=== PATIENT | male | born 1955 | race Caucasian/White ===

== ENCOUNTER 2018-12-02 19:20 | Inpatient (IN) | payer MEDICARE ==
[~2018-12-02 19:20] MED LIST: ISOVUE-370 76%-LOCM 1 ML ONE
--- NOTE | 2018-12-02 20:09 | CT ---
CT Brain WO Con HISTORY: Seizure COMPARISON: None. FINDINGS: The ventricular and cisternal system is within normal limits. There are no signs of intrace rebral hemorrhage or extra-axial fluid collections. The mastoid air cells and visualized sinuses are clear. IMPRESSION: No acute intracranial abnormalities.
[2018-12-02 20:31] LABS: #Eosinphils 0.1 thou/uL (0.0-0.7); #Lymphocytes 1.5 thou/uL (1.20-3.40); #Neutrophils 14.3 thou/uL (1.40-6.50); %Basophils 0.2 % (0.0-1.0); %Eosinophils 0.7 % (0.0-10.0); %Monocytes 5.9 % (0.0-10.0); %Neutrophils 84.2 % (42.0-75.0); Hemoglobin 14.4 g/dL (14.0-18.0); Mean Corpuscular HGB CONC 34.3 g/dL (32.0-36.0); Mean Corpuscular Hemoglobin 33.8 pg (27.0-31.0); Mean Corpuscular Volume 98.4 fL (78.0-98.0); Mean Platelet Volume 8.7 fL (7.4-10.4); Platelet Count 249 thou/uL (130-400); RBC Distribution Width 12.1 % (11.5-14.5); Red Blood Cell (RBC) Count 4.26 mill/uL (4.70-6.10); White Blood Cell (WBC) Count 16.9 thou/uL (4.8-10.8)
[2018-12-02 20:53] LABS: ALT (SGPT) 18 U/L (8-55); AST (SGOT) 18 U/L (5-34); Albumin 4.3 g/dL (3.4-4.8); Alkaline Phosphatase 85 U/L (40-150); Anion Gap 15 mmol/L (10-20); BUN (Urea Nitrogen) 24 mg/dL (8.4-25.7); Bilirubin, Total 0.3 mg/dL (0.2-1.2); Calc. Creatinine Clearance 0 mL/min (70-130); Calcium 9.5 mg/dL (7.8-10.44); Carbon Dioxide 20 mmol/L (23-31); Chloride 104 mmol/L (98-107); Estimated GFR-MDRD 49; Glucose 156 mg/dL (80-115); Potassium 4.1 mmol/L (3.5-5.1); Protein, Total 7.3 g/dL (5.8-8.1); Sodium 135 mmol/L (136-145)
[2018-12-02 21:16] LABS: CKMB 3.6 ng/mL (0-6.6)
--- NOTE | 2018-12-02 21:53 | CT ---
CT angiography of head performed with intravenous contrast enhancement with 3-D reconstructions HISTORY: Seizure and left-sided weakness. History of headache for the past 3 weeks. COMPARISON: Noncontrast CT of brain done earlier today. FINDINGS: The vertebral arteries are codominant. They form a somewhat small basilar artery. There is origin of both posterior communicating arteries which give the major contribution to the posterior cerebral arteries. There is atherosclerotic change of the cavernous portions of both internal carotid arteries. There is absence of the A1 segment of the left anterior cerebral artery the A2 segment is fed from the right side via the 8 anterior communicating artery. The middle cerebral arteries are normal in appear ance. No aneurysm. No intraluminal thrombus. IMPRESSION: Developmental abnormalities of the [place] as described above. No acute findings.
[2018-12-02] MEDS ORDERED: Ketorolac Tromethamine 30 MG/ML VIAL ONE (22:46)
[2018-12-02] MEDS ORDERED: diphenhydrAMINE 50 MG/ML VIAL ONE (22:46)
[2018-12-02] MEDS ORDERED: Metoclopramide HCl 10 MG/2 ML VIAL ONE (22:46)
[2018-12-02 23:30] LABS: Magnesium 1.6 mg/dL (1.6-2.6); Phosphorus 3.2 mg/dL (2.3-4.7)
--- NOTE | 2018-12-02 23:43 | RAD ---
XR Chest 1 View Portable HISTORY: Seizure and left-sided weakness. COMPARISON: None. FINDINGS: Heart size appears slightly enlarged. There are postop sternotomy changes. The lungs are cl ear of infiltrates. There are no signs of failure. IMPRESSION: No active intrathoracic disease.
[2018-12-03] MEDS ORDERED: Aspirin 325 MG TAB ONE (00:14)
[2018-12-03 06:13] VITALS: BMI 35.3
[2018-12-03 06:13] LABS: Folate (Folic Acid) 15.8 ng/mL (7.0-31.4)
[2018-12-03] MEDS ORDERED: Dextrose 5% in Water 1,000 ML IV PRN (07:12)
[2018-12-03] MEDS ORDERED: Insulin Regular 300 UNITS/3 ML VIAL SC PRN ×2 (07:12)
[2018-12-03] MEDS ORDERED: Dextrose 50% Abboject 50 ML SYRINGE SLOW IVP PRN (07:12)
[2018-12-03] MEDS ORDERED: hydrALAZINE 20 MG/ML VIAL SLOW IVP PRN ×2 (07:13→07:15)
[2018-12-03] MEDS ORDERED: tiZANidine HCl 4 MG TAB PO PRN (07:14)
--- NOTE | 2018-12-03 07:59 | HP ---
PRIMARY CARE PHYSICIAN: Dr. Vero Prabhakar. PRIMARY SUPERVISOR [employer] PRODUCTION: Dr. Viveros. CHIEF COMPLAINT: Altered mentation. HISTORY OF PRESENT ILLNESS: The patient is a 63-year-old male with coronary artery disease, paroxysmal atrial fibrillation, diabetes mellitus type 2, hypertension, and hyperlipidemia, presented to the emergency room with above complaints. History obtained from the patient. No family at the bedside. The patient was brought in by an [facility] with altered mentation. The patient was at home at that time. His noticed seizure-like activity. Details unavailable. The patient was unresponsive when EMS arrived. He was then found to have left-sided weakness by EMS. The patient also reports chronic headaches over the last 2 to 3 weeks. His primary care physician recently started him on Fioricet. The patient gradually regained consciousness in the helicopter. He does not recall the above event. He remembers eating dinner at approximately 5:30 p.m. He denies any double vision or blurring of vision at this time. The patient is legally blind since 2012. He had some nausea and had one episode of vomiting in the helicopter. No chest pain or palpitations reported. PAST MEDICAL HISTORY: 1. Paroxysmal atrial fibrillation. The patient had an event monitor with Dr. Viveros in July of this year that was negative for arrhythmias. It showed multiple PVCs. 2. Hypertension. 3. Hyperlipidemia. 4. Anxiety. 5. Legal blindness. 6. History of chondrosarcoma. 7. CKD. 8. Status post coronary artery bypass grafting. 9. Depression. 10. Diabetes mellitus, type 2. 11. GERD. 12. Obesity with a BMI of 35.3. 13. Obstructive sleep apnea. PAST SURGICAL HISTORY: 1. Bony pelvis surgery for chondrosarcoma. 2. Coronary artery bypass grafting. 3. Cystoscopy with ureteral stent removal. 4. Nasal septoplasty with turbinoplasty. FAMILY HISTORY: Positive for heart disease in both the parents. One sister with malignancy. SOCIAL HISTORY: The patient currently lives at home with his family. He denies any tobacco abuse. He drinks alcohol socially. REVIEW OF SYSTEMS: As discussed above, all other review of systems were reviewed and were found negative. CURRENT HOME MEDICATIONS: 1. Levemir 30 units daily. 2. Aspirin 81 mg daily. 3. Lipitor 40 mg at bedtime. 4. Isosorbide mononitrate 30 mg daily. 5. Metformin 1000 mg b.i.d. 6. Reglan 10 mg at bedtime p.r.n. 7. Mirabegron 25 mg daily. 8. Olmesartan 20 mg daily. 9. Tizanidine 4 mg daily. PHYSICAL EXAMINATION: VITAL SIGNS: Showed temperature 98.3, respirations 14, pulse rate of 93, and blood pressure 166/93 with O2 saturation 93% on room air. GENERAL: A 63-year-old male, in no apparent distress. HEENT: Head, atraumatic and normocephalic. Sclerae are anicteric. Moist mucous membranes. No oral lesion. NECK: Supple. No JVD. No neck stiffness. LUNGS: Clear to auscultation bilaterally. No wheezing, rales, or rhonchi. HEART: S1 and S2 present. Regular rate and rhythm. Healed midline scar from previous CABG. No heaves or pulsation. ABDOMEN: Soft, nontender. Bowel sounds present. No rebound or guarding. EXTREMITIES: No edema or calf tenderness. NEUROLOGY: Cranial nerves II through XII are normal on examination. Power was 5/5 in all extremities. Sensation to touch was normal bilaterally. PSYCHIATRY: Alert, awake, and oriented x3. SKIN: Warm and dry. LYMPH NODES: No palpable lymph nodes in the neck. PERIPHERAL VASCULAR: Radial pulses palpable bilaterally. MUSCULOSKELETAL: No joint swelling or tenderness. LABORATORY FINDINGS: CBC showed WBC 16.9, hemoglobin 14.4, hematocrit 41.9, and platelet 249. Chemistries showed sodium 135, potassium 4.1, chloride 104, bicarb 20, BUN 24, and creatinine 1.45. Troponin of 0.048. Repeat troponin was 0.107. Magnesium was 1.6, phosphorus 3.2, vitamin B12 of 322. Folic acid and TSH was normal. IMAGING DATA: CT scan of the brain by my review was negative for acute findings. Chest x-ray by my review was negative for infiltrate. CT angiogram of the head without contrast was negative for acute findings. There is absence of the A1 segment of the left anterior cerebral artery. EKG by my review showed sinus rhythm without significant ST-T wave changes. IMPRESSION: 1. New-onset seizure with left-sided weakness. The left-sided weakness has resolved. 2. Encephalopathy secondary to new-onset seizure with left-sided weakness, resolved. 3. Coronary artery disease, status post coronary artery bypass grafting. 4. Hypertension. 5. Hyperlipidemia. 6. Diabetes mellitus, type 2. 7. Hypomagnesemia. 8. Vitamin B12 deficiency. 9. Obesity with a BMI of 35. 10. Obstructive sleep apnea, on CPAP. 11. The patient is legally blind. 12. Anxiety. PLAN: The patient will be monitored in the Stroke Unit. Neurology will be consulted. MRI was discussed, however, the patient states that he has extreme claustrophobia and can only do MRI under anesthesia. We will discuss with Neurology. We will continue telemetry monitoring. Continue aspirin 81 mg. We will add sliding scale. The left-sided weakness was probably secondary to seizure. Other possibilities include transient ischemic attack. Echocardiogram will be obtained. Plan of care was discussed with the patient in detail. He stated understanding. Job ID: [id number]
[2018-12-03 08:53] LABS: CKMB 9.3 ng/mL (0-6.6)
[2018-12-03] MEDS: Isosorbide Mononitrate (ER) 30 MG TAB PO SCH (09:40)
[2018-12-03] MEDS: Aspirin 325 mg Enteric Coated Tablet PO SCH (09:40)
[2018-12-03] MEDS: Cyanocobalamin (Vitamin B-12) 1,000 MCG TAB PO SCH (09:40)
[2018-12-03] MEDS: Acetaminophen 325 MG TAB PO PRN (09:48)
[2018-12-03] MEDS: Enoxaparin Sodium 40 MG/0.4 ML SYRINGE SC SCH (09:48)
[2018-12-03] MEDS: Sodium Chloride 0.9% 1,000 ML IV SCH (10:25)
[2018-12-03] MEDS: Magnesium 2 GM/50 ML 2 GM in Premix Bag 1 BAG IVPB SCH ×2 (11:03→11:41)
[2018-12-03] MEDS ORDERED: Magnesium 2 GM/50 ML 2 GM in Premix Bag 1 BAG IVPB SCH (11:45)
[2018-12-03] MEDS ORDERED: PROPOFOL 200 MG/20 ML VIAL ONE (13:32)
[2018-12-03] MEDS ORDERED: Lidocaine 1% PF 5 ML VIAL ONE (13:32)
[2018-12-03] MEDS ORDERED: Gadobenate Dimeglumine 529 MG/1 ML (20ML VIAL) ONE (15:54)
[2018-12-03] MEDS ORDERED: Midazolam HCl 5 mg/5 ml Vial ONE (17:01)
--- NOTE | 2018-12-03 18:04 | MRI ---
MRI Brain W WO Con HISTORY: Headaches and right temporal region x3 weeks. COMPARISON: CT angiography of head and noncontrast CT performed yesterday. FINDINGS: The ventricular and cisternal system shows fairly age-appropriate change. There is some min imal T2 and FLAIR signal change within the white matter which is compatible with some age related change. No signs of any infarct. No intra or extra-axial masses. No areas of abnormal contrast enhancement. The mastoid air cells are clear. Minimal mucosal changes seen within the ethmoid air cells. Pituitary region appears unremarkable. IMPRESSION: No acute intracranial abnormalities.
[2018-12-03] MEDS: Atorvastatin Calcium 40 MG TAB PO SCH (21:07)
[2018-12-04 04:51] LABS: #Basophils 0.1 thou/uL (0.0-0.2); #Eosinphils 0.5 thou/uL (0.0-0.7); #Lymphocytes 2.3 thou/uL (1.20-3.40); #Monocytes 0.7 thou/uL (0.11-0.59); #Neutrophils 5.7 thou/uL (1.40-6.50); %Basophils 0.6 % (0.0-1.0); %Monocytes 7.7 % (0.0-10.0); %Neutrophils 61.7 % (42.0-75.0); Hemoglobin 13.1 g/dL (14.0-18.0); Mean Corpuscular HGB CONC 33.7 g/dL (32.0-36.0); Mean Corpuscular Hemoglobin 32.9 pg (27.0-31.0); Mean Corpuscular Volume 97.6 fL (78.0-98.0); Mean Platelet Volume 8.7 fL (7.4-10.4); Platelet Count 225 thou/uL (130-400); Red Blood Cell (RBC) Count 3.98 mill/uL (4.70-6.10); White Blood Cell (WBC) Count 9.3 thou/uL (4.8-10.8)
[2018-12-04 05:14] LABS: Anion Gap 13 mmol/L (10-20); BUN (Urea Nitrogen) 16 mg/dL (8.4-25.7); Calc. Creatinine Clearance 102 mL/min (70-130); Calcium 9.4 mg/dL (7.8-10.44); Carbon Dioxide 23 mmol/L (23-31); Cardiac Risk 5.8 (Less than 4.5); Chloride 107 mmol/L (98-107); Cholesterol 163 mg/dl (< 200 Desired); Estimated GFR-MDRD 66; Glucose 112 mg/dL (80-115); HDL Cholesterol 28 mg/dL (>60 Neg Risk); LDL Cholesterol, Calculated 97 mg/dL; Magnesium 1.7 mg/dL (1.6-2.6); Potassium 3.8 mmol/L (3.5-5.1); Sodium 139 mmol/L (136-145); Triglycerides 190 mg/dL (Less than 150)
[2018-12-04] MEDS: Acetaminophen 325 MG TAB PO PRN ×3 (08:09→18:06)
[2018-12-04] MEDS: Sodium Chloride 0.9% 1,000 ML IV SCH ×2 (08:56→20:37)
[2018-12-04] MEDS: Enoxaparin Sodium 40 MG/0.4 ML SYRINGE SC SCH (09:11)
[2018-12-04] MEDS: Senokot S 8.6-50 MG TAB PO PRN (09:11)
[2018-12-04] MEDS: Aspirin 325 mg Enteric Coated Tablet PO SCH (09:11)
[2018-12-04] MEDS: Cyanocobalamin (Vitamin B-12) 1,000 MCG TAB PO SCH (09:11)
[2018-12-04] MEDS: Isosorbide Mononitrate (ER) 30 MG TAB PO SCH (09:11)
[2018-12-04 09:42] LABS: Cocaine Metabolite Screen Not Detected (NotDetected); Medtox Reader # READER 4; Methamphetamine Not Detected (NotDetected); Opiate Screen Not Detected (NotDetected); Phencyclidine (PCP) Not Detected (NotDetected); THC/Cannabinoid Screen Not Detected (NotDetected)
[2018-12-04 09:43] LABS: Amphetamine Not Detected (NotDetected); Barbiturates Screen Detected (NotDetected); Benzodiazepine Screen Not Detected (NotDetected); Medtox Control Line Valid? VALID (VALID); Methadone Not Detected (NotDetected); Oxycodone Screen Not Detected (NotDetected); Tricyclic Screen Not Detected (NotDetected)
--- NOTE | 2018-12-04 10:03 | RAD ---
LEFT HIP THREE VIEWS: History: Left hip pain. FINDINGS: Degenerative changes are present. No fracture, dislocation, or bony destruction is identified. IMPRESSION: As above. POS: TPC
--- NOTE | 2018-12-04 14:14 | PDOC.HOSPP ---
- Subjective Encounter Date: 12/04/18 Encounter Time: 09:20 Subjective: Pt seen for followup re: seizure. Feels better. - Objective Vital Signs & Weight: Vital Signs (12 hours) Temp Pulse Pulse Resp BP BP BP 12/04/18 11:13 98.1 F 70 18 147/92 H 12/04/18 09:01 71 164/98 H 161/97 H 12/04/18 08:01 12/04/18 07:51 97.9 F 67 18 172/90 H Pulse Ox 12/04/18 11:13 96 12/04/18 09:01 12/04/18 08:01 96 12/04/18 07:51 96 Weight Weight 239 lb 6 oz I&O: 12/03/18 12/04/18 12/05/18 06:59 06:59 06:59 Intake Total 765 600 Balance 765 600 Result Diagrams: 12/04/18 04:25 12/04/18 04:25 Additional Labs: Accuchecks 12/04/18 12/04/18 12/03/18 10:59 05:40 19:16 POC Glucose 135 H 118 H 144 H 12/02/18 19:43 POC Glucose 154 H Labs and MARs reviewed by me EKG Reviewed by me: Yes (Tele: NSR) ROS - Review of Systems Respiratory: denies: cough, dry, shortness of breath, hemoptysis, SOB with excertion, pleuritic pain, sputum, wheezing Cardiovascular: denies: chest pain, palpitations, orthopnea, paroxysmal noc. dyspnea, edema, light headedness - Medication Medications: Active Medications Generic Name Dose Route Start Last Admin Trade Name Freq PRN Reason Stop Dose Admin Acetaminophen 650 mg 12/03/18 07:16 12/04/18 13:45 Tylenol PO 650 mg Q4H PRN Administration Headache/Fever/Mild Pain (1-3) Aspirin 325 mg 12/03/18 09:00 12/04/18 09:11 Ecotrin PO 325 mg DAILY JOSUE Administration Atorvastatin Calcium 40 mg 12/03/18 21:00 12/03/18 21:07 Lipitor PO 40 mg HS JOSUE Administration Cyanocobalamin 1,000 mcg 12/03/18 09:00 12/04/18 09:11 Vitamin B-12 PO 1,000 mcg DAILY JOSUE Administration Enoxaparin Sodium 40 mg 12/03/18 09:00 12/04/18 09:11 Lovenox SC 40 mg 0900 JOSUE Administration Sodium Chloride 1,000 mls @ 75 mls/hr 12/03/18 07:45 12/04/18 08:56 Normal Saline 0.9% IV Not Given .[id number] JOSUE Isosorbide Mononitrate 30 mg 12/03/18 09:00 12/04/18 09:11 Imdur Er PO 30 mg DAILY JOSUE Administration Mirabegron 25 mg 12/03/18 09:00 12/04/18 09:11 Myrbetriq Er PO 25 mg DAILY JOSUE Administration Senna/Docusate Sodium 1 tab 12/03/18 07:16 12/04/18 09:11 Senokot S PO 1 tab BID PRN Administration Constipation - Exam General - other findings: Obese Eye: anicteric sclera ENT: moist mucosa ENT - other findings: tongue bruised on left Heart: RRR Respiratory: CTAB Gastrointestinal: soft, non-tender Neurological: CN's grossly intact Musculoskeletal: normal tone Psychiatric: normal affect, normal behavior Hosp A/P (1) Seizure Code(s): R56.9 - UNSPECIFIED CONVULSIONS Status: Acute (2) Elevated troponin Code(s): R74.8 - ABNORMAL LEVELS OF OTHER SERUM ENZYMES Status: Acute (3) Right hip pain Code(s): M25.551 - PAIN IN RIGHT HIP Status: Acute (4) JERICA (obstructive sleep apnea) Code(s): G47.33 - OBSTRUCTIVE SLEEP APNEA (ADULT) (PEDIATRIC) Status: Acute (5) HTN (hypertension) Code(s): I10 - ESSENTIAL (PRIMARY) HYPERTENSION Status: Chronic (6) Dyslipidemia Code(s): E78.5 - HYPERLIPIDEMIA, UNSPECIFIED Status: Chronic (7) DM2 (diabetes mellitus, type 2) Status: Chronic - Plan PT/OT, out of bed/ambulate Seizure precautions. MRI brain nil acute. Continue Cozaar and PRN IV hydralazine. Reasonable control of blood sugars. Await neurology and cardiology services input. Check R hip x-rays.
[2018-12-04] MEDS: Carvedilol 3.125 MG TAB PO SCH (18:06)
[2018-12-04] MEDS: Atorvastatin Calcium 40 MG TAB PO SCH (20:33)
--- NOTE | 2018-12-04 22:59 | CON ---
DATE OF CONSULTATION: 12/04/2018 INDICATION FOR CONSULTATION: A 63-year-old patient with a history of coronary artery disease with a new onset seizure disorder. HISTORY OF PRESENT ILLNESS: This 63-year-old gentleman has a history of coronary artery disease, has undergone bypass surgery approximately 6 years ago, who is normally followed at [facility] by Dr. Viveros. He has had some history in the past of paroxysmal atrial fibrillation, was not on any oral anticoagulation. He also has multiple risk factors of coronary artery disease or peripheral vascular disease, which include hypertension, hyperlipidemia, and diabetes. He had been out to a restaurant yesterday and met some friends and then they were playing cards until about 5 o'clock. He went home and developed some type of seizure activity. EMS was called and he was brought to the emergency room. He did have some left-sided weakness apparently. He had been complaining of a significant headache for the last 2 or 3 weeks apparently in the druze area on the right side. Apparently, he has undergone an MRI thus far, which shows no evidence of any significant abnormalities. He did have also a CT angiogram of the [place], which shows some abnormalities, but none of them would most likely cause his seizure disorder. 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 He has had no previous seizure disorder. He does say that he is legally blind, however, he was playing cards, he says he uses big numbers. He also apparently still drives and he is watching TV in his room, but apparently is legally blind accordingly to the reports. He denied any chest pain.He has been followed on a routine basis at least twice the year at [facility] for his coronary artery disease and his last checkup he says he was doing well and was told that the heart is improving better than it had 2 years earlier. He denies any chest pain, and I do not know if he has had any recent stress testing. He had an echocardiogram performed today, which shows ejection fraction of 45% to 50%. The inferior posterior wall appears to be hypokinetic. An EKG does show what appears to be an old inferior myocardial infarction. He denied any chest pain or shortness of breath and no significant lower extremity edema or any indication the patient may have chest pain, discomfort, or congestive heart failure symptoms. PAST MEDICAL HISTORY: Significant for coronary artery disease, paroxysmal atrial fibrillation. He has had no significant arrhythmias since being here. He has had some occasional PACs or PVCs, but no significant abnormalities otherwise are noted. He also has hypertension, hyperlipidemia. He is legally blind. He has history of a chondrosarcoma. He has history of anxiety, chronic kidney disease, depression, gastroesophageal reflux disease, obesity, diabetes type 2. He has sleep apnea. He has had a cystoscopy with ureteral stent removal. He has had nasal surgery performed. He has had also pelvic surgery due to the chondrosarcoma. FAMILY HISTORY: Positive for coronary artery disease in both parents. He has one sister who has malignancy. SOCIAL HISTORY: He lives at home. He says he is legally blind. He denies any significant alcohol use, but does drink socially. He denies any tobacco abuse. REVIEW OF SYSTEMS: He said his tongue was swollen. Apparently, he had bitten his tongue during the seizure activity. He denies any pulmonary complaints or GI complaints. , he says he has had some problems with some benign prostatic hypertrophy. He says he has had some hypotension associated with the medications for the prostate hypertrophy. He denies any previous syncope. He has occasional dizziness if he goes from lying to standing, but otherwise no significant complaints on the review of systems. MEDICATIONS: Prior to admission include; 1. Gabapentin 600 mg p.r.n., he actually takes half a tablet when he takes it. 2. He is also on aspirin 81 mg a day. 3. Levemir insulin 30 units a day. 4. Lipitor 40 mg q.p.m. 5. Isosorbide mononitrate 30 mg daily. 6. Raglan. 7. Metformin 1000 mg b.i.d. 8. Olmesartan 20 mg a day. 9. Tizanidine 4 mg a day. 10. He also takes mirabegron 25 mg daily. PHYSICAL EXAMINATION: GENERAL: Reveals a well-developed, well-nourished gentleman. He is in no acute distress at this time. He is very pleasant. He is oriented. VITAL SIGNS: Blood pressure was elevated at 161/103, earlier it was 147/92. He is afebrile. Heart rates in the 60s to 80s and shows a sinus rhythm, respiratory rate 18, and O2 saturations 94% to 96%. HEENT: Shows the head to be normocephalic and atraumatic. Carotid pulses are present. Did not hear any bruits. CHEST: Clear to auscultation without rales, rhonchi, or wheezing. CARDIOVASCULAR: Reveals a regular rate and rhythm. He has normal S1 and S2. I did not hear an S3 nor an S4 nor hear any significant murmurs, heaves, thrills, bruits, or rubs. He has well-healed midline surgical incision after median sternotomy. ABDOMEN: Soft and nontender. Positive bowel sounds are present. EXTREMITIES: Show no clubbing, cyanosis, or edema. He has pedal pulses present. NEUROLOGIC: The patient at this time appears to be intact. He said he did have some discomfort in the left groin and has some difficulty in raising the left leg, but otherwise he was able to raise leg and did not appear to have any significant gross focal motor deficits. SKIN: Warm and dry. His EKG showed a normal sinus rhythm with what appears to be probable old inferior myocardial infarction, which is compatible with the findings on the echocardiogram. LABORATORY DATA: His hemoglobin is 13.1 with hematocrit 38.9, WBC was 9.3, and platelet count was 225,000. His sodium was 139, potassium was 3.8, and creatinine is 1.1. Troponin I was 0.126 with an MB of 9.3. Earlier, the troponin I was 0.107 and prior to that was 0.048. The C-reactive protein was 0.5. The initial CPK MB was 3.6. IMPRESSION: 1. Middle-aged gentleman, who is status post coronary artery bypass grafting with history of coronary artery disease, who has had also history of intermittent atrial fibrillation. There has been no evidence of arrhythmias noted here. He did undergo monitor earlier this year and last year, which showed no evidence of arrhythmias. The only abnormality at this time is he has had some elevation of the cardiac enzymes, which may be due to the seizure he experienced. We will continue to follow this patient. He is not having any significant complaints at this time. An EKG is unremarkable. It is unclear as to why he had seizure activity. He perhaps had some ventricular tachycardia, but it would provoke some type of seizure activity, but is unclear at this time. We will continue to monitor the patient if he consider doing stress testing if he is stabilized. His bypass surgery was approximately 6 years ago and the echocardiogram does show what appears to be hypokinesis of the inferior wall. This may be a new finding, unclear as to whether or not this gentleman had any acute cardiac event that would cause him to have a seizure disorder, most likely if so this would have been either asystole or ventricular fibrillation, they converted back to a sinus rhythm thus far. 2. History of hypertension. We will need to continue to manage his medications. He is not on the beta demetra and I do not know if he has any history that he has any emphysema. We will start him on a low dose of beta demetra and titrate upwards to control the heart rate and the blood pressure, uncertain as to why he has not been on beta-blockers in the past, but I do not see any beta-demetra listed. We will see whether or not he will tolerate this medication. 3. History of coronary artery disease. Can suggest stress testing prior to discharge to the patient. 4. History of diabetes. This will be dealt with by the primary care service. As far as his other medical problems, this will also be dealt with by the primary care service. At this time, we will start him on beta blockers and consider stress testing once he wheezes. He is deemed stable to undergo some type of stress test. There was no significant abnormalities noted on the MRI that would account for seizure activity. ADDENDUM: Please note on Mr. Madison it is possible that his seizure disorder was caused by some type of arrhythmia either ventricular fibrillation or asystole. I would suggest perhaps if he has any significant arrhythmias this may give us some insight in why he had the seizure disorder, otherwise he may be a candidate for an implantable loop recorder to rule out any evidence of further arrhythmias, especially since he does have some history of intermittent atrial fibrillation, but also suggested at some point in the near future, he undergo some type of stress test to rule out evidence for underlying ischemia, any possible arrhythmias that would have induced seizure in this otherwise neurologically healthy patient. Job ID: [id number] [facility]
--- NOTE | 2018-12-05 01:14 | CON ---
DATE OF CONSULTATION: 12/04/2018 CONSULTING PHYSICIAN: Hospitalist Service. IMPRESSION: New onset seizure with negative workup. PLAN: 1. Seizure precautions were given. 2. No anticonvulsants at this point. HISTORY OF PRESENT ILLNESS: Mr. Madison is 63-year-old man who presented after having apparent generalized tonic-clonic seizure at home. Prodrome to this, he had a headache 3 weeks prior. He had an infection of his toe and was seeing a team manager prior to this as well. He had been on 3 different rounds of antibiotics of uncertain drugs. He was seen by his primary care and given some butalbital to use for his headache. He has no nausea, vomiting, dizziness, lateralized weakness, or numbness associated with it. He was sitting at the kitchen table and eating a sandwich when he suddenly lost consciousness. He did not regain consciousness until he was in the air being life-flighted to the hospital. His workup has been unremarkable thus far. He had a CT of the brain, CTA, MRI of the brain, and echocardiogram which were all unremarkable. He has not had any further seizure activity. PAST MEDICAL HISTORY: Coronary artery disease, atrial fibrillation, hypertension, hyperlipidemia, and diabetes. ALLERGIES: NONE REPORTED. SOCIAL HISTORY: No tobacco or drug use. FAMILY HISTORY: Noncontributory. MEDICATION LIST: Reviewed. REVIEW OF SYSTEMS: Ten-system review of systems is, otherwise, negative. PHYSICAL EXAMINATION: GENERAL: He is a well-nourished, middle-aged man, in no distress. VITAL SIGNS: Stable. He is afebrile. HEENT: Pupils are equal and reactive. Conjunctivae clear. Oropharynx clear. Cranium is normocephalic and atraumatic. NECK: Supple. EXTREMITIES: No cyanosis, clubbing, or edema. NEUROLOGIC: He is alert and appropriate. His speech is fluent and clear. Cranial nerves II through XII are intact. Motor exam shows equal strength. There is no tremor or dysmetria. No sensory deficits are present. He can stand and walk independently. IMAGING PROCEDURE: EKG shows sinus rhythm. SUMMARY: This is a middle-aged man who presents with new onset seizure. Apparently, he has been having some marked blood pressure variability, and supposedly there was diastolic pressure of 137 at home. I am wondering if he may have had a bit of a hypertensive crisis that provoked his seizure, it is difficult to document. At this point, I would not start any anticonvulsants, but would follow in his care. Job ID: [id number]
[2018-12-05 09:04] LABS: #Eosinphils 0.6 thou/uL (0.0-0.7); #Lymphocytes 1.9 thou/uL (1.20-3.40); #Monocytes 0.6 thou/uL (0.11-0.59); #Neutrophils 4.5 thou/uL (1.40-6.50); %Basophils 0.5 % (0.0-1.0); %Eosinophils 7.4 % (0.0-10.0); %Lymphocytes 24.7 % (21.0-51.0); %Monocytes 7.8 % (0.0-10.0); %Neutrophils 59.6 % (42.0-75.0); Hemoglobin 13.8 g/dL (14.0-18.0); Mean Corpuscular HGB CONC 34.9 g/dL (32.0-36.0); Mean Corpuscular Hemoglobin 33.5 pg (27.0-31.0); Mean Corpuscular Volume 96.1 fL (78.0-98.0); Mean Platelet Volume 8.9 fL (7.4-10.4); Platelet Count 230 thou/uL (130-400); RBC Distribution Width 11.9 % (11.5-14.5); White Blood Cell (WBC) Count 7.5 thou/uL (4.8-10.8)
[2018-12-05] MEDS: Aspirin 325 mg Enteric Coated Tablet PO SCH (09:12)
[2018-12-05] MEDS: Cyanocobalamin (Vitamin B-12) 1,000 MCG TAB PO SCH (09:12)
[2018-12-05] MEDS: Losartan 25 MG TAB PO SCH (09:13)
[2018-12-05] MEDS: Isosorbide Mononitrate (ER) 30 MG TAB PO SCH (09:13)
[2018-12-05] MEDS: Enoxaparin Sodium 40 MG/0.4 ML SYRINGE SC SCH (09:14)
[2018-12-05] MEDS: Carvedilol 3.125 MG TAB PO SCH ×2 (09:16→16:51)
[2018-12-05 09:17] LABS: Anion Gap 14 mmol/L (10-20); BUN (Urea Nitrogen) 12 mg/dL (8.4-25.7); Calc. Creatinine Clearance 112 mL/min (70-130); Calcium 9.6 mg/dL (7.8-10.44); Carbon Dioxide 22 mmol/L (23-31); Chloride 107 mmol/L (98-107); Estimated GFR-MDRD 74; Glucose 130 mg/dL (80-115); Potassium 3.8 mmol/L (3.5-5.1); Sodium 139 mmol/L (136-145)
[2018-12-05] MEDS: Sodium Chloride 0.9% 1,000 ML IV SCH ×2 (09:18→21:04)
--- NOTE | 2018-12-05 11:19 | PQF ---
DATE: 12-05-18 ATTN: DR. JHOANA SANTIZO Please exercise your independent, professional judgment in responding to the clarification form. Clinical indicators are provided on the bottom of this form for your review Please check appropriate box(s): [ ] Encephalopathy: Type: [ ] Acute [ ] Subacute [ ] Chronic Etiology: [ ] Hypertensive [ ] Metabolic [ ] Toxic [ ] Other (please specify) [ ] Transient Alteration of Awareness [ ] Other diagnosis [ ] Unable to determine In addition, please specify: Present on Admission (POA): [ ] Yes [ ] No [ ] Unable to determine For continuity of documentation, please document condition throughout progress notes and discharge summary. Thank You. CLINICAL INDICATORS - SIGNS / SYMPTOMS / LABS: ER: SEIZURE, HEADACHE H&P: ALTERED MENTATION, UNRESPONSIVENESS, LEFT SIDED WEAKNESS H&P: ENCEPHALOPATHY SECONDARY TO NEW ONSET SEIZURE WITH L SIDED WEAKNESS, RESOLVED RISK FACTORS: CONSULT NOTE DR. GONZALEZ 12-04-18: HAS BEEN HAVING SOME MARKED BLOOD PRESSURE VARIABILITY, AND SUPPOSEDLY THERE WAS DIASTOLIC PRESSURE OF 137 AT HOME. I AM WONDERING IF HER MAY HAVE HAD A BIT OF HYPERTENSIVE CRISIS THAT PROVOKED HIS SEIZURE TREATMENTS: BRAIN MRI 12-03-18 ECHO 12-04-18 NEURO CONSULT 12-04-18 DR. LISA CRISTINA 12-03-18 IVF (This form is maintained as a part of the permanent medical record) 2014 [employer]. All Rights Reserved MARISOL [email or web address] Office: [phone] [facility]
--- NOTE | 2018-12-05 13:45 | PDOC.CTH ---
Cardiology Progress Note - Subjective The pt seen and examined. No overnight events. No cardiac complaints. He complains of headache for more than a few wks. - Objective Vital Signs Temp Pulse Resp BP BP Pulse Ox 12/05/18 09:17 93 L 12/05/18 08:22 97.7 F 74 18 164/109 H 93 L 12/05/18 05:50 153/91 H 12/05/18 03:28 97.6 F 64 16 189/108 H 94 L Weight 239 lb 6 oz 12/04/18 12/05/18 12/06/18 06:59 06:59 06:59 Intake Total 765 2225 Balance 765 2225 - Physical Examination General/Neuro: alert & oriented x3 Neck: no JVD present Lungs: CTA Heart: RRR Abdomen: soft Extremities: other: (No edema) - Telemetry Telemetry Rhythm: SR - Labs Result Diagrams: 12/05/18 08:32 12/05/18 08:32 Troponin/CKMB CK-MB (CK-2) 9.3 ng/mL (0-6.6) H* 12/03/18 07:54 Troponin I 0.126 ng/mL (< 0.028) H 12/03/18 07:54 - Assessment/Plan 1. Elevated trop possible 2/2 seizure 2. Seizure possible 2/2 arrhythmia/asystole - the pt will have stress test to r/ o any CAD 3. Parox Afib - remains in SR; On Coreg 3.125mg BID and ASA; 4. S/p CABG in 2012 - on Bblocker, ASA, and Lipitor 5. HTN - will start Norvasc 5mg qd from today 6. HLD - on Lipitor 7. DM type 2 - managed by PCP 8. 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 Anxiety/depression MAR reviewed * Echo on 12/04/2018 with EF 45-50%, mild MR, TR, and HI. * Dr Viveros's pt at [facility] The stress test was negative for ischemia but an inferior scar was noted. This may be a focus for arrythmias. I feel that he should have an EP evaluation to rule out ventricular arrythmias as a possible etiology of the seizure. it is possible that he had vTach or Vfib. that caused the seizure. I will discuss with EP and and request a consult. I agree with the A/P by the INSTRUMENT MAINTENANCE SUPERVISOR. RRR. Chest clear. Review of Systems - Review of Systems Constitutional: reports: no symptoms reported EENTM: reports: no symptoms reported Respiratory: reports: no symptoms reported Cardiac (ROS): reports: no symptoms reported ABD/GI: reports: no symptoms reported Musculoskeletal: reports: no symptoms reported
[2018-12-05] MEDS ORDERED: Amlodipine 5 MG TAB PO SCH (14:00)
--- NOTE | 2018-12-05 14:46 | NM ---
Radionucleotide stress and rest myocardial perfusion scan with CT attenuation correction and SPECT im aging Left ventricular wall motion evaluation and ejection fraction HISTORY: Chest pain. Hypertension. FINDINGS: Adenosine protocol. Heterogeneous uptake of radiotracer throughout the left ventricular jacques cardium. Moderate sized area of diminished radiotracer uptake involving most of the inferior lateral wall. No significant improvement on the rest images. QGS analysis of gated SPECT images shows diminished motion of the inferolateral wall. Ejection fracti on calculated at 43%. IMPRESSION: Large area of scar involving the inferior lateral wall. No significant ischemia demonstra cynthia. Depressed ejection fraction of 43%.
[2018-12-05] MEDS ORDERED: ADENOSINE 60 MG/20 ML VIAL ONE (15:04)
[2018-12-05] MEDS: Senokot S 8.6-50 MG TAB PO PRN (16:52)
--- NOTE | 2018-12-05 17:23 | PDOC.HOSPP ---
- Subjective Encounter Date: 12/05/18 Encounter Time: 17:21 Subjective: Pt seen for followup re: seizure. Says he feels well. - Objective Vital Signs & Weight: Vital Signs (12 hours) Temp Pulse Resp BP BP BP Pulse Ox 12/05/18 16:51 91 150/100 H 12/05/18 14:48 90 137/94 H 12/05/18 14:38 97.6 F 90 18 137/94 H 95 12/05/18 09:17 93 L 12/05/18 08:22 97.7 F 74 18 164/109 H 93 L 12/05/18 05:50 153/91 H Weight Weight 239 lb 6 oz I&O: 12/04/18 12/05/18 12/06/18 06:59 06:59 06:59 Intake Total 765 2225 Balance 765 2225 Result Diagrams: 12/05/18 08:32 12/05/18 08:32 Additional Labs: Accuchecks 12/05/18 12/05/18 12/05/18 17:03 10:48 05:39 POC Glucose 241 H 162 H 140 H 12/04/18 20:55 POC Glucose 181 H labs and MARs reviewed by me EKG Reviewed by me: Yes (tele: NSR) ROS - Review of Systems Respiratory: denies: cough, shortness of breath, SOB with excertion, pleuritic pain, wheezing Cardiovascular: denies: chest pain, palpitations, orthopnea, paroxysmal noc. dyspnea, edema, light headedness Neurological: denies: weakness, numbness, incoordination, change in speech, confusion, seizures - Medication Medications: Active Medications Generic Name Dose Route Start Last Admin Trade Name Freq PRN Reason Stop Dose Admin Acetaminophen 650 mg 12/03/18 07:16 12/04/18 18:06 Tylenol PO 650 mg Q4H PRN Administration Headache/Fever/Mild Pain (1-3) Aspirin 325 mg 12/03/18 09:00 12/05/18 09:12 Ecotrin PO 325 mg DAILY JOSUE Administration Atorvastatin Calcium 40 mg 12/03/18 21:00 12/04/18 20:33 Lipitor PO 40 mg HS JOSUE Administration Carvedilol 3.125 mg 12/04/18 17:00 12/05/18 16:51 Coreg PO 3.125 mg BID-WM JOSUE Administration Cyanocobalamin 1,000 mcg 12/03/18 09:00 12/05/18 09:12 Vitamin B-12 PO 1,000 mcg DAILY JOSUE Administration Enoxaparin Sodium 40 mg 12/03/18 09:00 12/05/18 09:14 Lovenox SC 40 mg 0900 JOSUE Administration Hydralazine HCl 10 mg 12/03/18 07:15 12/05/18 04:17 Apresoline SLOW IVP 10 mg Q4H PRN Administration SBP Greater Than 180 Sodium Chloride 1,000 mls @ 75 mls/hr 12/03/18 07:45 12/05/18 09:18 Normal Saline 0.9% IV 1,000 mls .[id number] JOSUE Administration Isosorbide Mononitrate 30 mg 12/03/18 09:00 12/05/18 09:13 Imdur Er PO 30 mg DAILY JOSUE Administration Losartan Potassium 50 mg 12/05/18 09:00 12/05/18 09:13 Cozaar PO 50 mg DAILY JOSUE Administration Mirabegron 25 mg 12/03/18 09:00 12/05/18 09:14 Myrbetriq Er PO 25 mg DAILY JOSUE Administration Senna/Docusate Sodium 1 tab 12/03/18 07:16 12/05/18 16:52 Senokot S PO 1 tab BID PRN Administration Constipation - Exam NAD Eye: anicteric sclera ENT: normocephalic atraumatic, moist mucosa Neck: supple, no thyromegaly Heart: RRR, no rubs Respiratory: CTAB Gastrointestinal: soft, non-tender Skin: normal turgor Psychiatric: normal affect, normal behavior Hosp A/P (1) Seizure Code(s): R56.9 - UNSPECIFIED CONVULSIONS Status: Acute (2) Right hip pain Code(s): M25.551 - PAIN IN RIGHT HIP Status: Resolved (3) JERICA (obstructive sleep apnea) Code(s): G47.33 - OBSTRUCTIVE SLEEP APNEA (ADULT) (PEDIATRIC) Status: Acute (4) HTN (hypertension) Code(s): I10 - ESSENTIAL (PRIMARY) HYPERTENSION Status: Chronic (5) Dyslipidemia Code(s): E78.5 - HYPERLIPIDEMIA, UNSPECIFIED Status: Chronic (6) DM2 (diabetes mellitus, type 2) Status: Chronic (7) Elevated troponin Code(s): R74.8 - ABNORMAL LEVELS OF OTHER SERUM ENZYMES Status: Acute - Plan Seizure precautions. No need for seizure medications at this time, per neurology. Continue Cozaar and PRN IV hydralazine. Reasonable control of blood sugars. Pt has cardiac scar. EP service consulted, recommend AICD on Saturday.
[2018-12-05] MEDS: Insulin Regular 300 UNITS/3 ML VIAL SC PRN (17:51)
[2018-12-05] MEDS: Acetaminophen 325 MG TAB PO PRN ×2 (17:59→21:00)
--- NOTE | 2018-12-05 18:11 | CON ---
DATE OF CONSULTATION: 12/05/2018 HISTORY OF PRESENT ILLNESS: I am seeing Mr. Madison at our [facility] as an electrophysiology method consultant for the following problems. 1. Episode of seizure/syncopal spell, prompting this admission, new onset. a. Negative brain MRI on 12/03/2018. 2. Chronic ischemic cardiomyopathy. a. Nuclear stress test from 12/05/2018 shows LVEF of 43% and inferolateral wall scar. b. History of coronary artery bypass grafting surgery. 3. History of paroxysmal atrial fibrillation, on oral anticoagulation. 4. History of hypertension, hyperlipidemia, and diabetes. 5. History of legal blindness. ALLERGIES: NONE NOTED. MEDICATIONS: At home, included; 1. Metoclopramide. 2. Isosorbide mononitrate. 3. Mirabegron. 4. Olmesartan. 5. Tizanidine. 6. Metformin. 7. Lipitor. 8. Aspirin. 9. Insulin. SUBJECTIVE: Mr. Madison is here admitted after an episode of seizure. This occurred while he was playing card with friends. He had some transient left-sided weakness, but that quickly resolved. He also has some headaches associated with this episodes. Episode was sudden, otherwise unprovoked. Workup so far showed some development abnormality of a [place] of [place], which may or may not explain this episode. Brain MRI was negative. Evaluated by Neurology. He underwent a stress test, demonstrating a scar, no ischemia, but reduced LVEF of 43%. SOCIAL HISTORY: The patient denies smoking, EtOH, or drug abuse. He lives at home. FAMILY HISTORY: Significant for coronary artery disease for both parents. Sister had malignancy. OBJECTIVE DATA: VITAL SIGNS: Blood pressure is 137/94, heart rate 90, respirations 18, and temperature 97.6 degrees Fahrenheit. GENERAL: He is an alert and oriented man, with elevated BMI, in no apparent distress. NECK: Supple. Jugular veins not distended. CHEST: Coarse without crackles. HEART: Sounds are regular to rate and rhythm. No murmur or gallop. ABDOMEN: Benign. Bowel sounds positive. EXTREMITIES: Lower extremities without edema, clubbing, or cyanosis. Pulses are adequate. NEUROLOGIC: The patient is nonfocal. MUSCULOSKELETAL: Without joint swelling or deformity. SKIN: Without rash. DATABASE: EKG is reviewed, revealing sinus rhythm, rate of 108 beats per minute , nonspecific ST-T wave changes, inferior Q-waves are noted. LABORATORY DATA: White cell count 7.5, hematocrit 30.8, and platelet count is 230. Sodium 139, potassium 3.8, BUN is 12, and creatinine is 1.0. The brain CT shows no intracranial abnormalities. ASSESSMENT AND PLAN: Mr. Madison is a pleasant 63-year-old man with history of ischemic heart disease, inferior scar, bypass surgery in the past, usually follows with Dr. Sullivan at [facility]. He presented with seizure activity, which is of unclear origin. He has been evaluated by Dr. Nur, neurologist. For now, no antiseizure medications are planned. On the other hand, the episode of seizure could also be representation of circulatory collapse, most likely due to arrhythmia. He has evidence of myocardial scarring with [id number] reduced left ventricular ejection fraction on his recent stress test. We discussed the potential for ventricular arrhythmias causing his symptoms. It is reasonable to consider an electrophysiology study to assess inducibility of ventricular tachycardia. Should he be inducible, it would be unreasonable to proceed with implantable cardiac defibrillator implantation, otherwise a loop recorder implant still may be reasonable to monitor for further potential arrhythmias. He also has history of atrial fibrillation, currently though in sinus rhythm, which could be also further monitored. If indeed significant burden has seen, he may benefit from anticoagulation as well. We discussed these issues with the patient and he understands and willing to proceed. We will schedule him for a nearest date. Thank you for allowing me to participate in the care of this patient. Job ID: [id number] [facility]
[2018-12-05] MEDS: Atorvastatin Calcium 40 MG TAB PO SCH (21:00)
[2018-12-06] MEDS: Sodium Chloride 0.9% 1,000 ML IV SCH (02:15)
[2018-12-06] MEDS: Acetaminophen 325 MG TAB PO PRN ×2 (04:08→09:14)
[2018-12-06 04:38] LABS: #Basophils 0.1 thou/uL (0.0-0.2); #Eosinphils 0.5 thou/uL (0.0-0.7); #Lymphocytes 2.6 thou/uL (1.20-3.40); #Monocytes 0.9 thou/uL (0.11-0.59); #Neutrophils 5.7 thou/uL (1.40-6.50); %Basophils 0.7 % (0.0-1.0); %Eosinophils 5.4 % (0.0-10.0); %Lymphocytes 26.3 % (21.0-51.0); %Monocytes 9.1 % (0.0-10.0); %Neutrophils 58.4 % (42.0-75.0); Hemoglobin 13.3 g/dL (14.0-18.0); Mean Corpuscular HGB CONC 33.7 g/dL (32.0-36.0); Mean Corpuscular Hemoglobin 32.6 pg (27.0-31.0); Mean Corpuscular Volume 96.8 fL (78.0-98.0); Mean Platelet Volume 8.7 fL (7.4-10.4); Platelet Count 242 thou/uL (130-400); Red Blood Cell (RBC) Count 4.08 mill/uL (4.70-6.10); White Blood Cell (WBC) Count 9.8 thou/uL (4.8-10.8)
[2018-12-06 05:02] LABS: Anion Gap 14 mmol/L (10-20); BUN (Urea Nitrogen) 16 mg/dL (8.4-25.7); Calc. Creatinine Clearance 97 mL/min (70-130); Calcium 9.4 mg/dL (7.8-10.44); Carbon Dioxide 23 mmol/L (23-31); Chloride 108 mmol/L (98-107); Estimated GFR-MDRD 63; Glucose 116 mg/dL (80-115); Potassium 3.9 mmol/L (3.5-5.1); Sodium 141 mmol/L (136-145)
[2018-12-06] MEDS ORDERED: Amlodipine 5 MG TAB PO SCH ×2 (09:00→13:45)
[2018-12-06] MEDS: Isosorbide Mononitrate (ER) 30 MG TAB PO SCH (09:15)
[2018-12-06] MEDS: Aspirin 325 mg Enteric Coated Tablet PO SCH (09:15)
[2018-12-06] MEDS: Losartan 25 MG TAB PO SCH (09:16)
[2018-12-06] MEDS: Carvedilol 3.125 MG TAB PO SCH ×2 (09:16→18:30)
[2018-12-06] MEDS: Cyanocobalamin (Vitamin B-12) 1,000 MCG TAB PO SCH (09:16)
[2018-12-06] MEDS: Enoxaparin Sodium 40 MG/0.4 ML SYRINGE SC SCH (09:17)
[2018-12-06] MEDS: Insulin Regular 300 UNITS/3 ML VIAL SC PRN (11:53)
--- NOTE | 2018-12-06 13:39 | PDOC.HOSPP ---
- Subjective Encounter Date: 12/06/18 Encounter Time: 07:00 Subjective: Pt seen for followup re: seizure. c/o left sided headache, improved with acetaminophen. - Objective Vital Signs & Weight: Vital Signs (12 hours) Temp Pulse Resp BP BP BP BP 12/06/18 11:10 98.4 F 79 18 103/74 12/06/18 09:16 74 187/87 H 12/06/18 07:35 97.5 F L 74 16 187/87 H 12/06/18 04:00 97.5 F L 70 20 172/89 H Pulse Ox 12/06/18 11:10 95 12/06/18 09:16 12/06/18 07:35 98 12/06/18 04:00 98 Weight Weight 239 lb 6 oz I&O: 12/05/18 12/06/18 12/07/18 06:59 06:59 06:59 Intake Total 2225 1845 Output Total 1625 Balance 2225 220 Result Diagrams: 12/06/18 04:09 12/06/18 04:09 Additional Labs: Accuchecks 12/06/18 12/06/18 12/05/18 10:31 05:43 21:05 POC Glucose 246 H 119 H 134 H 12/05/18 17:03 POC Glucose 241 H labs and MARs reviewed by me EKG Reviewed by me: Yes (Tele: NSR) ROS - Review of Systems Cardiovascular: denies: chest pain, palpitations, orthopnea, paroxysmal noc. dyspnea, edema, light headedness Musculoskeletal: reports: other (headache) Neurological: denies: weakness, numbness, incoordination, change in speech, confusion, seizures - Medication Medications: Active Medications Generic Name Dose Route Start Last Admin Trade Name Freq PRN Reason Stop Dose Admin Acetaminophen 650 mg 12/03/18 07:16 12/06/18 09:14 Tylenol PO 650 mg Q4H PRN Administration Headache/Fever/Mild Pain (1-3) Amlodipine Besylate 5 mg 12/06/18 09:00 12/06/18 09:16 Norvasc PO 5 mg DAILY JOSUE Administration Aspirin 325 mg 12/03/18 09:00 12/06/18 09:15 Ecotrin PO 325 mg DAILY JOSUE Administration Atorvastatin Calcium 40 mg 12/03/18 21:00 12/05/18 21:00 Lipitor PO 40 mg HS JOSUE Administration Carvedilol 3.125 mg 12/04/18 17:00 12/06/18 09:16 Coreg PO 3.125 mg BID-WM JOSUE Administration Cyanocobalamin 1,000 mcg 12/03/18 09:00 12/06/18 09:16 Vitamin B-12 PO 1,000 mcg DAILY JOSUE Administration Enoxaparin Sodium 40 mg 12/03/18 09:00 12/06/18 09:17 Lovenox SC 40 mg 0900 JOSUE Administration Hydralazine HCl 10 mg 12/03/18 07:15 12/05/18 04:17 Apresoline SLOW IVP 10 mg Q4H PRN Administration SBP Greater Than 180 Insulin Human Regular 0 units 12/05/18 17:30 12/06/18 11:53 Humulin R SC 3 unit .MILD SLIDING SCALE PRN Administration Mild Correctional Scale Isosorbide Mononitrate 30 mg 12/03/18 09:00 12/06/18 09:15 Imdur Er PO 30 mg DAILY JOSUE Administration Losartan Potassium 50 mg 12/05/18 09:00 12/06/18 09:16 Cozaar PO 50 mg DAILY JOSUE Administration Mirabegron 25 mg 12/03/18 09:00 12/06/18 09:17 Myrbetriq Er PO 25 mg DAILY JOSUE Administration Senna/Docusate Sodium 1 tab 12/03/18 07:16 12/05/18 16:52 Senokot S PO 1 tab BID PRN Administration Constipation - Exam awake alert General - other findings: Obese Eye: anicteric sclera ENT: no oropharyngeal lesions ENT - other findings: tongue bruise improved Neck: supple, no JVD Heart: RRR, no rubs Respiratory: CTAB Gastrointestinal: soft, non-tender Extremities: no clubbing Neurological: no weakness, no focal deficits Psychiatric: normal affect, normal behavior Hosp A/P (1) Seizure Code(s): R56.9 - UNSPECIFIED CONVULSIONS Status: Acute (2) JERICA (obstructive sleep apnea) Code(s): G47.33 - OBSTRUCTIVE SLEEP APNEA (ADULT) (PEDIATRIC) Status: Acute (3) HTN (hypertension) Code(s): I10 - ESSENTIAL (PRIMARY) HYPERTENSION Status: Chronic (4) Dyslipidemia Code(s): E78.5 - HYPERLIPIDEMIA, UNSPECIFIED Status: Chronic (5) DM2 (diabetes mellitus, type 2) Status: Chronic (6) Elevated troponin Code(s): R74.8 - ABNORMAL LEVELS OF OTHER SERUM ENZYMES Status: Acute (7) Transient alteration of awareness Code(s): R40.4 - TRANSIENT ALTERATION OF AWARENESS Status: Resolved Plan: present on admission (8) Right hip pain Code(s): M25.551 - PAIN IN RIGHT HIP Status: Resolved - Plan plan discussed w/ family, PT/OT, out of bed/ambulate Pt awaiting AICD placement on Saturday. No need for seizure medications at this time, per neurology. BP elevated, increase amlodipine to 10 mg daily. Reasonable control of blood sugars.
[2018-12-06] MEDS ORDERED: Amlodipine 10 MG TAB PO SCH (13:45)
[2018-12-06] MEDS: traMADol HCl 50 MG TAB PO PRN (19:00)
[2018-12-06] MEDS: Atorvastatin Calcium 40 MG TAB PO SCH (21:38)
[2018-12-07 05:33] LABS: #Basophils 0.1 thou/uL (0.0-0.2); #Eosinphils 0.6 thou/uL (0.0-0.7); #Lymphocytes 2.6 thou/uL (1.20-3.40); #Monocytes 0.7 thou/uL (0.11-0.59); #Neutrophils 4.2 thou/uL (1.40-6.50); %Basophils 0.7 % (0.0-1.0); %Lymphocytes 31.5 % (21.0-51.0); %Neutrophils 51.7 % (42.0-75.0); Hemoglobin 13.3 g/dL (14.0-18.0); Mean Corpuscular HGB CONC 35.2 g/dL (32.0-36.0); Mean Corpuscular Hemoglobin 34.3 pg (27.0-31.0); Mean Corpuscular Volume 97.4 fL (78.0-98.0); Mean Platelet Volume 8.5 fL (7.4-10.4); Platelet Count 235 thou/uL (130-400); Red Blood Cell (RBC) Count 3.88 mill/uL (4.70-6.10); White Blood Cell (WBC) Count 8.2 thou/uL (4.8-10.8)
[2018-12-07 05:57] LABS: Anion Gap 12 mmol/L (10-20); BUN (Urea Nitrogen) 13 mg/dL (8.4-25.7); Calc. Creatinine Clearance 98 mL/min (70-130); Calcium 9.1 mg/dL (7.8-10.44); Carbon Dioxide 22 mmol/L (23-31); Chloride 107 mmol/L (98-107); Estimated GFR-MDRD 64; Glucose 135 mg/dL (80-115); Potassium 3.7 mmol/L (3.5-5.1); Sodium 137 mmol/L (136-145)
[2018-12-07] MEDS: Amlodipine 10 MG TAB PO SCH (09:33)
[2018-12-07] MEDS: Carvedilol 3.125 MG TAB PO SCH ×2 (09:33→15:58)
[2018-12-07] MEDS: Aspirin 325 mg Enteric Coated Tablet PO SCH (09:34)
[2018-12-07] MEDS: Isosorbide Mononitrate (ER) 30 MG TAB PO SCH (09:34)
[2018-12-07] MEDS: Losartan 25 MG TAB PO SCH (09:34)
[2018-12-07] MEDS: traMADol HCl 50 MG TAB PO PRN ×2 (09:34→15:58)
[2018-12-07] MEDS: Cyanocobalamin (Vitamin B-12) 1,000 MCG TAB PO SCH (09:34)
[2018-12-07] MEDS: Enoxaparin Sodium 40 MG/0.4 ML SYRINGE SC SCH (09:35)
[2018-12-07] MEDS: Insulin Regular 300 UNITS/3 ML VIAL SC PRN (11:33)
--- NOTE | 2018-12-07 14:06 | PDOC.HOSPP ---
- Subjective Encounter Date: 12/07/18 Encounter Time: 07:00 Subjective: Pt seen for followup re: seizure. Feels well, no complaints today. - Objective Vital Signs & Weight: Vital Signs (12 hours) Temp Pulse Resp BP BP BP Pulse Ox 12/07/18 11:48 97.7 F 74 16 138/73 96 12/07/18 09:33 69 174/86 H 12/07/18 07:59 97.7 F 69 16 174/86 H 92 L 12/07/18 07:30 92 L 12/07/18 05:27 147/83 H 12/07/18 04:00 97.9 F 73 16 189/89 H 94 L Weight Weight 239 lb 6 oz I&O: 12/06/18 12/07/18 12/08/18 06:59 06:59 06:59 Intake Total 1845 1130 600 Output Total 1625 Balance 220 1130 600 Result Diagrams: 12/07/18 05:20 12/07/18 05:20 Additional Labs: Accuchecks 12/07/18 12/07/18 12/06/18 10:40 05:41 20:13 POC Glucose 206 H 121 H 190 H 12/06/18 16:51 POC Glucose 124 H Labs and MARs reviewed by me EKG Reviewed by me: Yes (Tele: NSR) ROS - Review of Systems Respiratory: denies: cough, dry, shortness of breath, hemoptysis, SOB with excertion, pleuritic pain, sputum, wheezing Cardiovascular: denies: chest pain, palpitations, orthopnea, paroxysmal noc. dyspnea, edema, light headedness Neurological: reports: other (headache improved) - Medication Medications: Active Medications Generic Name Dose Route Start Last Admin Trade Name Freq PRN Reason Stop Dose Admin Acetaminophen 650 mg 12/03/18 07:16 12/06/18 09:14 Tylenol PO 650 mg Q4H PRN Administration Headache/Fever/Mild Pain (1-3) Amlodipine Besylate 10 mg 12/07/18 09:00 12/07/18 09:33 Norvasc PO 10 mg DAILY JOSUE Administration Aspirin 325 mg 12/03/18 09:00 12/07/18 09:34 Ecotrin PO 325 mg DAILY JOSUE Administration Atorvastatin Calcium 40 mg 12/03/18 21:00 12/06/18 21:38 Lipitor PO 40 mg HS JOSUE Administration Carvedilol 3.125 mg 12/04/18 17:00 12/07/18 09:33 Coreg PO 3.125 mg BID-WM JOSUE Administration Cyanocobalamin 1,000 mcg 12/03/18 09:00 12/07/18 09:34 Vitamin B-12 PO 1,000 mcg DAILY JOSUE Administration Enoxaparin Sodium 40 mg 12/03/18 09:00 12/07/18 09:35 Lovenox SC 40 mg 0900 JOSUE Administration Hydralazine HCl 10 mg 12/03/18 07:15 12/05/18 04:17 Apresoline SLOW IVP 10 mg Q4H PRN Administration SBP Greater Than 180 Insulin Human Regular 0 units 12/05/18 17:30 12/07/18 11:33 Humulin R SC 3 unit .MILD SLIDING SCALE PRN Administration Mild Correctional Scale Isosorbide Mononitrate 30 mg 12/03/18 09:00 12/07/18 09:34 Imdur Er PO 30 mg DAILY JOSUE Administration Losartan Potassium 50 mg 12/05/18 09:00 12/07/18 09:34 Cozaar PO 50 mg DAILY JOSUE Administration Mirabegron 25 mg 12/03/18 09:00 12/07/18 09:34 Myrbetriq Er PO 25 mg DAILY JOSUE Administration Senna/Docusate Sodium 1 tab 12/03/18 07:16 12/05/18 16:52 Senokot S PO 1 tab BID PRN Administration Constipation Tramadol HCl 50 mg 12/06/18 12:42 12/06/18 19:00 Ultram PO 50 mg Q6H PRN Administration Pain Tramadol HCl 100 mg 12/06/18 12:42 12/07/18 09:34 Ultram PO 100 mg Q6H PRN Administration Pain - Exam General - other findings: Obese Eye: anicteric sclera ENT: moist mucosa Neck: supple, symmetric Heart: RRR Respiratory: CTAB, no wheezes, no rales, no ronchi Gastrointestinal: soft, non-tender Extremities: no cyanosis Skin: normal turgor Psychiatric: normal affect, normal behavior Hosp A/P (1) Seizure Code(s): R56.9 - UNSPECIFIED CONVULSIONS Status: Acute (2) JERICA (obstructive sleep apnea) Code(s): G47.33 - OBSTRUCTIVE SLEEP APNEA (ADULT) (PEDIATRIC) Status: Acute (3) HTN (hypertension) Code(s): I10 - ESSENTIAL (PRIMARY) HYPERTENSION Status: Chronic (4) Dyslipidemia Code(s): E78.5 - HYPERLIPIDEMIA, UNSPECIFIED Status: Chronic (5) DM2 (diabetes mellitus, type 2) Status: Chronic (6) Elevated troponin Code(s): R74.8 - ABNORMAL LEVELS OF OTHER SERUM ENZYMES Status: Acute (7) Transient alteration of awareness Code(s): R40.4 - TRANSIENT ALTERATION OF AWARENESS Status: Resolved (8) Right hip pain Code(s): M25.551 - PAIN IN RIGHT HIP Status: Resolved - Plan PT/OT, out of bed/ambulate Pt awaiting AICD placement tomorrow for scar tissue probably causing arrhythmias. No need for seizure medications at this time. Improved blood pressure control. Continue accuchecks and insulin sliding scale.
[2018-12-07] MEDS: Atorvastatin Calcium 40 MG TAB PO SCH (20:27)
[2018-12-08 05:00] LABS: #Eosinphils 0.5 thou/uL (0.0-0.7); #Lymphocytes 2.7 thou/uL (1.20-3.40); #Monocytes 0.6 thou/uL (0.11-0.59); #Neutrophils 4.7 thou/uL (1.40-6.50); %Basophils 0.4 % (0.0-1.0); %Eosinophils 6.3 % (0.0-10.0); %Lymphocytes 31.6 % (21.0-51.0); %Monocytes 7.4 % (0.0-10.0); %Neutrophils 54.3 % (42.0-75.0); Hemoglobin 13.4 g/dL (14.0-18.0); Mean Corpuscular HGB CONC 34.7 g/dL (32.0-36.0); Mean Corpuscular Hemoglobin 33.8 pg (27.0-31.0); Mean Corpuscular Volume 97.5 fL (78.0-98.0); Mean Platelet Volume 8.4 fL (7.4-10.4); Platelet Count 243 thou/uL (130-400); RBC Distribution Width 11.8 % (11.5-14.5); Red Blood Cell (RBC) Count 3.97 mill/uL (4.70-6.10); White Blood Cell (WBC) Count 8.6 thou/uL (4.8-10.8)
[2018-12-08 05:19] LABS: Anion Gap 12 mmol/L (10-20); BUN (Urea Nitrogen) 17 mg/dL (8.4-25.7); Calc. Creatinine Clearance 98 mL/min (70-130); Calcium 9.1 mg/dL (7.8-10.44); Carbon Dioxide 25 mmol/L (23-31); Chloride 103 mmol/L (98-107); Estimated GFR-MDRD 64; Glucose 131 mg/dL (80-115); Potassium 3.7 mmol/L (3.5-5.1); Sodium 136 mmol/L (136-145)
[2018-12-08] MEDS: Amlodipine 10 MG TAB PO SCH (08:11)
[2018-12-08] MEDS: Carvedilol 3.125 MG TAB PO SCH ×2 (08:11→17:34)
[2018-12-08] MEDS: Losartan 25 MG TAB PO SCH (08:12)
[2018-12-08] MEDS: Enoxaparin Sodium 40 MG/0.4 ML SYRINGE SC SCH (08:12)
[2018-12-08] MEDS: Aspirin 325 mg Enteric Coated Tablet PO SCH (08:12)
[2018-12-08] MEDS: Cyanocobalamin (Vitamin B-12) 1,000 MCG TAB PO SCH (08:12)
[2018-12-08] MEDS: Isosorbide Mononitrate (ER) 30 MG TAB PO SCH (08:12)
--- NOTE | 2018-12-08 11:44 | PDOC.HOSPP ---
- Subjective Encounter Date: 12/08/18 Encounter Time: 07:00 Subjective: Pt seen for followup re: seizure. Feels better, no complaints. - Objective Vital Signs & Weight: Vital Signs (12 hours) Temp Pulse Resp BP BP BP Pulse Ox 12/08/18 08:11 65 144/80 H 12/08/18 07:38 98 F 65 17 144/80 H 95 12/08/18 03:47 97.8 F 69 20 140/80 95 Weight Weight 239 lb 6 oz I&O: 12/07/18 12/08/18 12/09/18 06:59 06:59 06:59 Intake Total 1130 1260 Balance 1130 1260 Result Diagrams: 12/08/18 04:38 12/08/18 04:38 Additional Labs: Accuchecks 12/08/18 12/07/18 12/07/18 05:47 19:24 16:48 POC Glucose 146 H 166 H 112 H Labs reviewed by me EKG Reviewed by me: Yes (Tele: NSR) ROS - Review of Systems Respiratory: denies: cough, shortness of breath, SOB with excertion, pleuritic pain, wheezing Cardiovascular: denies: chest pain, palpitations, orthopnea, paroxysmal noc. dyspnea, edema, light headedness - Medication Medications: Active Medications Generic Name Dose Route Start Last Admin Trade Name Freq PRN Reason Stop Dose Admin Acetaminophen 650 mg 12/03/18 07:16 12/06/18 09:14 Tylenol PO 650 mg Q4H PRN Administration Headache/Fever/Mild Pain (1-3) Amlodipine Besylate 10 mg 12/07/18 09:00 12/08/18 08:11 Norvasc PO 10 mg DAILY JOSUE Administration Aspirin 325 mg 12/03/18 09:00 12/08/18 08:12 Ecotrin PO 325 mg DAILY JOSUE Administration Atorvastatin Calcium 40 mg 12/03/18 21:00 12/07/18 20:27 Lipitor PO 40 mg HS JOSUE Administration Carvedilol 3.125 mg 12/04/18 17:00 12/08/18 08:11 Coreg PO 3.125 mg BID-WM JOSUE Administration Cyanocobalamin 1,000 mcg 12/03/18 09:00 12/08/18 08:12 Vitamin B-12 PO 1,000 mcg DAILY JOSUE Administration Enoxaparin Sodium 40 mg 12/03/18 09:00 12/08/18 08:12 Lovenox SC 40 mg 0900 JOSUE Administration Hydralazine HCl 10 mg 12/03/18 07:15 12/05/18 04:17 Apresoline SLOW IVP 10 mg Q4H PRN Administration SBP Greater Than 180 Insulin Human Regular 0 units 12/05/18 17:30 12/07/18 11:33 Humulin R SC 3 unit .MILD SLIDING SCALE PRN Administration Mild Correctional Scale Isosorbide Mononitrate 30 mg 12/03/18 09:00 12/08/18 08:12 Imdur Er PO 30 mg DAILY JOSUE Administration Losartan Potassium 50 mg 12/05/18 09:00 12/08/18 08:12 Cozaar PO 50 mg DAILY JOSUE Administration Mirabegron 25 mg 12/03/18 09:00 12/08/18 08:12 Myrbetriq Er PO 25 mg DAILY JOSUE Administration Senna/Docusate Sodium 1 tab 12/03/18 07:16 12/05/18 16:52 Senokot S PO 1 tab BID PRN Administration Constipation Tramadol HCl 50 mg 12/06/18 12:42 12/06/18 19:00 Ultram PO 50 mg Q6H PRN Administration Pain Tramadol HCl 100 mg 12/06/18 12:42 12/07/18 15:58 Ultram PO 100 mg Q6H PRN Administration Pain - Exam General - other findings: Obese Eye: anicteric sclera ENT: moist mucosa Neck: supple Heart: RRR Respiratory: CTAB Gastrointestinal: soft Extremities: no clubbing Neurological: no weakness Psychiatric: normal affect, normal behavior Hosp A/P (1) Seizure Code(s): R56.9 - UNSPECIFIED CONVULSIONS Status: Acute (2) HTN (hypertension) Code(s): I10 - ESSENTIAL (PRIMARY) HYPERTENSION Status: Chronic (3) Dyslipidemia Code(s): E78.5 - HYPERLIPIDEMIA, UNSPECIFIED Status: Chronic (4) DM2 (diabetes mellitus, type 2) Status: Chronic (5) Transient alteration of awareness Code(s): R40.4 - TRANSIENT ALTERATION OF AWARENESS Status: Resolved (6) Right hip pain Code(s): M25.551 - PAIN IN RIGHT HIP Status: Resolved - Plan plan discussed w/ family, out of bed/ambulate Pt awaiting AICD placement today. No recurrence of seizures. BP controlled. Continue accuchecks and insulin sliding scale.
[2018-12-08] MEDS ORDERED: Lidocaine 1% (PF) 30 ML VIAL ONE (12:53)
[2018-12-08] MEDS ORDERED: Propofol 1,000 MG/100 ML VIAL IV ONE (13:29)
[2018-12-08] MEDS ORDERED: Phenylephrine HCL 10 MG/ML VIAL ONE (14:18)
[2018-12-08] MEDS ORDERED: Fentanyl 100 MCG/2 ML VIAL ONE (14:19)
[2018-12-08] MEDS ORDERED: Isoproterenol 0.2 MG/1 ML AMP ONE (14:40)
[2018-12-08] MEDS ORDERED: Lidocaine 1% w/Epinephrine 1:100K 20 ML VIAL ONE (14:58)
[2018-12-08] MEDS ORDERED: Promethazine HCl 25 MG/ML VIAL IM PRN (15:10)
[2018-12-08] MEDS ORDERED: Promethazine HCl 25 MG/ML VIAL SLOW IVP PRN (15:10)
[2018-12-08] MEDS ORDERED: Ondansetron HCl/PF 4 MG/2 ML Vial IVP PRN (15:10)
[2018-12-08] MEDS ORDERED: Meperidine HCl/PF 25 MG/ML VIAL SLOW IVP PRN (15:10)
--- NOTE | 2018-12-08 16:35 | OP ---
DATE OF PROCEDURE: 12/08/2018 PROCEDURE PERFORMED: LINQ loop recorder implant. REASON FOR PROCEDURE: Mr. Madison is a pleasant 63-year-old man with prior history of coronary artery disease with prior bypass surgery, inferior scar, who presented with a seizure episode, possible syncope for unclear etiology. He underwent EP study, demonstrating no inducible ventricular tachycardia. LINQ recorder was implanted for future arrhythmia monitoring. DESCRIPTION OF PROCEDURE: The patient received deep sedation by anesthesia specialist. The left precordial 4th intercostal space was prepped, draped, and anesthetized using subcutaneous lidocaine with a standard [employer] tool kit. An incision was made and the LINQ recorder was implanted without difficulty. The wound was closed with Steri-Strips and Dermabond glue. CONCLUSION: Successful LINQ recorder implant. PLAN: Routine monitoring. Job ID: [id number]
[2018-12-08] MEDS ORDERED: tiZANidine HCl 4 MG TAB PO PRN (17:04)
[2018-12-08] MEDS: traMADol HCl 50 MG TAB PO PRN (17:22)
[2018-12-08] MEDS: Senokot S 8.6-50 MG TAB PO PRN (17:23)
[2018-12-08] MEDS: Atorvastatin Calcium 40 MG TAB PO SCH (20:24)
--- NOTE | 2018-12-08 21:11 | OP ---
DATE OF PROCEDURE: 12/08/2018 PROCEDURE PERFORMED: Electrophysiology study. REASON FOR PROCEDURE: Mr. Madison is a 63-year-old man, who presented with seizure episode syncopal spell of unclear etiology. He also has evidence of reduced LVEF at 43% with a large inferior scar on recent nuclear scan. He is here for EP study to rule out inducible ventricular arrhythmias as potential cause for the episode. DESCRIPTION OF PROCEDURE: The patient received deep sedation by the Anesthesia specialist. The right femoral vein was prepped, draped, and anesthetized using subcutaneous lidocaine. Under ultrasound guidance, the right femoral vein was cannulated x1. An 8-[place]aur[place] short sheath was introduced through which a decapolar catheter was advanced to the right ventricle, right atrium, His bundle positions. Pacing, mapping, and recording were performed in each location. The following findings are noted. Baseline rhythm is sinus rhythm at 930 milliseconds, RI 240, QRS 86, QT 401 milliseconds, AH 67, HV 71 milliseconds. The sinus node recovery time is 1396, corrected to 70 milliseconds noted. AV Wenckebach cycle was 380 milliseconds. Retrograde Wenckebach cycle was 520 milliseconds. AV aga ERP was 600/260 milliseconds. Burst atrial pacing did not induce arrhythmia. No dual AV aga physiology is present. Ventricular access to my testing was performed using 600 and [address] trains with up to 3 ventricular extrastimuli, which were determined to the refractory period. With this method, only short nonsustained ventricular arrhythmia was noted from the apex, but no ventricular arrhythmia was induced from the high septum with up to 3 ventricular extrastimuli on and off Isuprel was also administered at 5 mcg per kg per minute prior to the final induction protocol. CONCLUSION: 1. No inducible sustained ventricular tachycardia. 2. Normal sinus and AV aga function. 3. No evidence of dual AV aga physiology or accessory pathway present. PLAN: Proceed with LINQ recorder implant. Job ID: [id number]
[2018-12-09] MEDS: Isosorbide Mononitrate (ER) 30 MG TAB PO SCH (09:40)
[2018-12-09] MEDS: Losartan 25 MG TAB PO SCH (09:41)
[2018-12-09] MEDS: Amlodipine 10 MG TAB PO SCH (09:41)
[2018-12-09] MEDS: Cyanocobalamin (Vitamin B-12) 1,000 MCG TAB PO SCH (09:42)
[2018-12-09] MEDS: Senokot S 8.6-50 MG TAB PO PRN (09:42)
[2018-12-09] MEDS: Carvedilol 3.125 MG TAB PO SCH (09:42)
[2018-12-09] MEDS: Aspirin 325 mg Enteric Coated Tablet PO SCH (09:42)
[2018-12-09] MEDS: Enoxaparin Sodium 40 MG/0.4 ML SYRINGE SC SCH (09:43)
[2018-12-09 11:50] VITALS: BP 92/55; TEMP 98.4
[2018-12-09] MEDS: Insulin Regular 300 UNITS/3 ML VIAL SC PRN (12:46)
--- NOTE | 2018-12-09 18:51 | DIS ---
DATE OF ADMISSION: 12/03/2018 DATE OF DISCHARGE: 12/09/2018 PRIMARY CARE PROVIDER: Dr. Vero Gonzalez. DISCHARGE DIAGNOSES: 1. Seizure. 2. Transient alteration of awareness. 3. Cardiac scar. CONDITION OF PATIENT ON THE DAY OF DISCHARGE: Stable. I assessed Mr. Madison on the day of discharge. He denies any chest pain or shortness of breath. Vital signs are stable. S1 and S2 are heard, regular. Lungs are clear to auscultation bilaterally. CONSULTATIONS DURING THIS HOSPITALIZATION: Cardiology, Dr. Patricio. Neurology, Dr. Nur. Electrophysiology, Dr. Chaney. FOLLOWUP APPOINTMENTS: The patient is advised to follow up with primary care provider in 3 days' time and with Electrophysiology Service in 2 to 3 weeks' time. DISCHARGE MEDICATIONS: 1. Aspirin 81 mg daily. 2. Lipitor 40 mg at bedtime. 3. Levemir 30 units daily. 4. Isosorbide mononitrate 30 mg daily. 5. Metformin 1000 mg 2 times a day. 6. Metoclopramide 10 mg at bedtime as needed. 7. Mirabegron 25 mg daily. 8. Olmesartan 20 mg daily. 9. Tizanidine 4 mg daily. 10. Amlodipine 10 mg daily. 11. Coreg 3.125 mg two times a day. HOSPITAL COURSE: Mr. Madison is a pleasant 63-year-old gentleman, who was admitted to [facility] on December 03, 2018 for seizure. Please refer to Dr. Jordan's history and physical note for further details. He was seen by Neurology Service. MRI of the brain did not show any acute intracranial abnormality. 2D echocardiogram showed E/A flow reversal suggestive of diastolic dysfunction. EF was estimated at 45% to 50%. He had normal right ventricular size and function, moderately dilated left atrium, mildly enlarged right atrium, mild mitral regurgitation, tricuspid aortic valve with mild leaflet thickening, mild tricuspid regurgitation, and mild pulmonic regurgitation. He also had a large area of scar involving the inferior lateral wall. No significant ischemia was demonstrated. Because of the scar tissue, there was concern regarding arrhythmias. He was seen by Electrophysiology Service. On December 08, he underwent EP study. There was no inducible sustained ventricular tachycardia. He had normal sinus and AV aga function. There was no evidence of dual AV aga physiology or accessory pathway. He then had a LINQ recorder implanted. He is being discharged home in a stable condition. On December 08, he had white count of 8600, hemoglobin 13.4, and platelet count 243,000. Normal electrolytes and creatinine of 1.15. Many thanks for allowing me to participate in your patient's care. Please feel free to contact me with any questions or concerns. DISCHARGE DESTINATION: Home. TIME SPENT: Total amount of time spent coordinating this discharge: 32 minutes. Job ID: [id number]
--- NOTE | 2018-12-09 22:19 | PDOC.CTH ---
Cardiology Progress Note - Subjective Pt. was seen and eval. by me. No new overnight events. No complaints. EP study did not reveal any V-tachycardia. An implantable loop recorder was placed yesterday. - Objective Vital Signs Temp Pulse Resp BP Pulse Ox 12/09/18 11:49 98.4 F 73 16 92/55 L 94 L Weight 239 lb 6 oz 12/08/18 12/09/18 12/10/18 06:59 06:59 06:59 Intake Total 1260 580 Balance 1260 580 - Physical Examination General/Neuro: alert & oriented x3 Neck: carotid US brisk, no JVD present Lungs: CTA Heart: RRR Abdomen: no HSM, NT/ND - Telemetry Telemetry Rhythm: NSR - Labs Result Diagrams: 12/08/18 04:38 12/08/18 04:38 Troponin/CKMB CK-MB (CK-2) 9.3 ng/mL (0-6.6) H* 12/03/18 07:54 Troponin I 0.126 ng/mL (< 0.028) H 12/03/18 07:54 - Assessment/Plan 1. Seizure of uncertain etology. Due to his prior [place] and inferior scar it was felt that he possibly had an episode of V-tach. EP study did not indicate this. A loop recorder was inserted. He will f/u with [facility].. 2. CAD: stable. 3. Paroxysmal atrial fib. Remains in NSR. 4, DM. Per primary service. From a cardiac standpoint he is stable for d/c.
== END 2018-12-09 14:11 | disposition home or self-care (01) | DRG 41 ==
LOC: ERS 19:20 → 2SE 12-03 01:40
PROVIDERS: ADMIT Internal Medicine; ATTEND Internal Medicine
PROC: 0JH632Z Insertion of Monitoring Device into Chest Subcutaneous Tissue and Fascia, Percutaneous Approach (ICD-10-PCS; principal; 2018-12-08)
PROC: 4A023FZ Measurement of Cardiac Rhythm, Percutaneous Approach (ICD-10-PCS; 2018-12-08)
DX: R56.9 Unspecified convulsions (principal); G93.49 Other encephalopathy; I25.10 Atherosclerotic heart disease of native coronary artery without angina pectoris; I48.0 Paroxysmal atrial fibrillation; E11.9 Type 2 diabetes mellitus without complications; E78.5 Hyperlipidemia, unspecified; F41.9 Anxiety disorder, unspecified; I12.9 Hypertensive chronic kidney disease with stage 1 through stage 4 chronic kidney disease, or unspecified chronic kidney disease; N18.9 Chronic kidney disease, unspecified; F32.9 Major depressive disorder, single episode, unspecified; K21.9 Gastro-esophageal reflux disease without esophagitis; I34.0 Nonrheumatic mitral (valve) insufficiency; I37.1 Nonrheumatic pulmonary valve insufficiency; I07.1 Rheumatic tricuspid insufficiency; E66.9 Obesity, unspecified; G47.33 Obstructive sleep apnea (adult) (pediatric); R74.8 Abnormal levels of other serum enzymes; M25.551 Pain in right hip; Z95.1 Presence of aortocoronary bypass graft; Z79.82 Long term (current) use of aspirin; Z79.84 Long term (current) use of oral hypoglycemic drugs; Z68.35 Body mass index [BMI] 35.0-35.9, adult
CPT/HCPCS: 33285; 36415; 36416; 70450; 70496; 70553; 71045; 76942; 78452; 80048; 80053; 80061; 80306; 82553; 82607; 82746; 83735; 84100; 84443; 84484; 85025; 85652; 86140; 87040; 93005; 93017; 93306; 93621; 96365; 96375; A9500; A9577; C1730; C1764; C1769; J0153; J0360; J1200; J1644; J1650; J1815; J1885; J2001; J2250; J2370; J2704; J2765; J3010; J3475; Q9966